=== PATIENT | female | born 1995 | race African-American/Black ===

== ENCOUNTER 2021-09-12 18:14 | Emergency (ER) | payer SELFPAY ==
[~2021-09-12] VITALS: Ht 160 cm; Wt 81.8 kg
[2021-09-12 19:23] VITALS: BP 150/92
[2021-09-12] MEDS ORDERED: CEPH500C PO (19:31)
--- NOTE | 2021-09-12 19:31 | PHYS DOC ---
General Adult EDM: Chief Complaint: ABSCESS HPI: HPI: Patient is a 26 year old female who presents with left axillary 2 small nickel sized abscesses that are hard with slight pinkness around them. Nonfluctuant. Patient rates her burning discomfort at a 7 out of 10. She denies fever, nausea, vomiting, body aches. Review of Systems: Review of Systems: Constitutional: Denies fever or chills. [] Eyes: Denies change in visual acuity. [] HENT: Denies nasal congestion or sore throat. [] Respiratory: Denies cough or shortness of breath. [] Cardiovascular: Denies chest pain or edema. [] GI: Denies abdominal pain, nausea, vomiting, bloody stools or diarrhea. [] : Denies dysuria. [] Musculoskeletal: Denies back pain or joint pain. + Left axillary pain [] Integument: Denies rash. + Left axillary abscess [] Neurologic: Denies headache, focal weakness or sensory changes. [] Endocrine: Denies polyuria or polydipsia. [] Lymphatic: Denies swollen glands. [] Psychiatric: Denies depression or anxiety. [] Heart Score: C/O Chest Pain: No Physical Exam: PE: Constitutional: Well developed, well nourished, no acute distress, non-toxic appearance. [] HENT: Normocephalic, atraumatic, bilateral external ears normal, oropharynx moist, no oral exudates, nose normal. [] Eyes: PERRLA, EOMI, conjunctiva normal, no discharge. [] Neck: Normal range of motion, no tenderness, supple, no stridor. [] Cardiovascular:Heart rate regular rhythm, no murmur [] Lungs & Thorax: Bilateral breath sounds clear to auscultation [] Abdomen: Bowel sounds normal, soft, no tenderness, no masses, no pulsatile masses. [] Skin: Warm, dry, left axilla erythema, no rash. Left axilla abscess x2, nickel sized, nonfluctuant, slight pinkness developing around the area. Nondraining. [] Back: No tenderness, no CVA tenderness. [] Extremities: No tenderness, no cyanosis, no clubbing, ROM intact, no edema. [] Neurologic: Alert and oriented X 3, normal motor function, normal sensory function, no focal deficits noted. [] Psychologic: Affect normal, judgement normal, mood normal. [] EKG: EKG: [] Radiology/Procedures: Radiology/Procedures: [] Course & Med Decision Making: Course & Med Decision Making Pertinent Labs and Imaging studies reviewed. (See chart for details) See HPI. Alert and oriented x4. Ambulatory steady gait. Speaks in full clear sentences. Left axilla 2 separate nonfluctuant nickel sized abscesses. Nondraining. Slight pinkness around bilateral abscesses. Afebrile. Full range of motion of the joint. She is not a diabetic. [] Dragon Disclaimer: Dragon Disclaimer: This electronic medical record was generated, in whole or in part, using a voice recognition dictation system. Departure Departure Impression: Primary Impression: Abscess Disposition: 01 HOME / SELF CARE / HOMELESS Condition: STABLE Referrals: NO PCP (PCP) Patient Instructions: Abscess Additional Instructions: Use a warm compress to the area. Take antibiotic as prescribed and with food. If you begin running a fever or you have more severe pain and the redness starts to spread he return to the emergency room. You can also return in 48 hours for a recheck of the area. Scripts Cephalexin (KEFLEX) 500 Mg Capsule 1 CAP PO QID, #40 CAP Prov: GYPSY LEGER APRN 09/12/21 GYPSY LEGER APRN Sep 12, 2021 19:31
== END 2021-09-12 19:43 | disposition home or self-care (01) ==
LOC: ER 18:14
DX: L02.412 Cutaneous abscess of left axilla (principal)
CPT/HCPCS: 99283